=== PATIENT | female | born 1990 | race Caucasian/White ===

== ENCOUNTER 2020-12-29 06:25 | Inpatient (IN) | payer SELFPAY ==
[~2020-12-29] VITALS: Ht 172.7 cm; Wt 74.5 kg
[2020-12-29 07:16] VITALS: BP 112/77
[2020-12-29] MEDS ORDERED: OXYTOCIN 30U/ 0.9% NaCL 500ML 500 ML IV ONE (07:30)
[2020-12-29] MEDS ORDERED: FENTANYL PF 100 MCG/2ML IV PRN (07:30)
[2020-12-29] MEDS ORDERED: D5%-LACTATED RINGERS 1,000 ML IV SCH (07:30)
[2020-12-29] MEDS ORDERED: CALCIUM CARBONATE 500 MG TAB.CHEW PO PRN (07:30)
[2020-12-29] MEDS ORDERED: TERBUTALINE 1 MG/ML, 1ML SQ PRN (07:30)
[2020-12-29] MEDS ORDERED: FENTANYL PF 100 MCG/2ML IVPush PRN (07:30)
[2020-12-29] MEDS ORDERED: TERBUTALINE 1 MG/ML, 1ML IVPush PRN (07:30)
[2020-12-29] MEDS ORDERED: ONDANSETRON 2MG/ML, 2ML IVPush PRN (07:30)
[2020-12-29] MEDS ORDERED: NEWBORN KIT ONE (07:32)
[2020-12-29] MEDS ORDERED: OXYTOCIN 30U/ 0.9% NaCL 500ML 500 ML ONE (07:33)
[2020-12-29] MEDS ORDERED: MISOPROSTOL 200 MCG TABLET ONE (07:33)
[2020-12-29] MEDS ORDERED: LIDOCAINE 1%, 20ML ONE (07:33)
[2020-12-29] MEDS: LACTATED RINGERS 1,000 ML IV SCH ×3 (07:40→12:33)
[2020-12-29 07:49] LABS: BASOPHILS % (AUTO) 1 % (0-1); EOSINOPHILS % (AUTO) 1 % (1-7); LYMPHOCYTES % (AUTO) 12 % (22-44); MEAN CORPUSCULAR HEMOGLOBIN 33.6 pg (27.0-34.8); MEAN CORPUSCULAR HGB CONC 34.4 g/dL (32.4-35.8); MEAN PLATELET VOLUME 9.9 fL (7.4-10.4); MONOCYTES % (AUTO) 6 % (2-9); NEUTROPHILS % (AUTO) 82 % (42-75); PLATELET COUNT 162 x10^3/uL (130-400); RED BLOOD COUNT 3.95 x10^6/uL (3.82-5.3); RED CELL DISTRIBUTION WIDTH 12.2 % (9.6-15.2)
[2020-12-29] MEDS ORDERED: PNV1TAB.5 PO (08:25)
[2020-12-29] MEDS ORDERED: EPHEDRINE 50 MG/ML, 1ML ONE (11:07)
[2020-12-29] MEDS ORDERED: FENTANYL/BUPIV./NS/PF 250 ML EPIDCONT ONE (11:08)
[2020-12-29] MEDS ORDERED: EPHEDRINE 50 MG/ML, 1ML IVPush ONE (12:20)
[2020-12-29] MEDS ORDERED: OXYTOCIN 30U/ 0.9% NaCL 500ML 500 ML IV PRN (12:30)
[2020-12-29 21:00] VITALS: BP 109/68
[2020-12-29] MEDS ORDERED: OXYcodone/APAP 5/325MG TABLET PO PRN (21:30)
[2020-12-29] MEDS ORDERED: SIMETHICONE 80 MG CHEW TAB PO PRN (21:30)
[2020-12-29] MEDS ORDERED: OXYTOCIN 30U/ 0.9% NaCL 500ML 500 ML IV SCH (21:30)
[2020-12-29] MEDS ORDERED: ONDANSETRON 2MG/ML, 2ML IV PRN (21:30)
[2020-12-29] MEDS ORDERED: CARBOPROST TROMETHAMINE 250 MCG/ML, 1ML IM PRN (21:30)
[2020-12-29] MEDS ORDERED: MISOPROSTOL 200 MCG TABLET PR PRN (21:30)
[2020-12-29] MEDS ORDERED: METHYLERGONOVINE 0.2 MG/ML IM PRN (21:30)
[2020-12-29] MEDS: DOCUSATE 100 MG CAPSULE PO PRN (21:40)
[2020-12-29] MEDS: OXYcodone/APAP 5/325MG TABLET PO PRN (21:41)
[2020-12-30] MEDS: IBUPROFEN 600 MG TABLET PO PRN ×3 (00:27→15:43)
[2020-12-30 00:34] VITALS: BP 102/67
[2020-12-30 02:44] LABS: BASOPHILS % (AUTO) 1 % (0-1); EOSINOPHILS % (AUTO) 0 % (1-7); LYMPHOCYTES % (AUTO) 9 % (22-44); MEAN CORPUSCULAR HEMOGLOBIN 33.9 pg (27.0-34.8); MEAN CORPUSCULAR HGB CONC 34.5 g/dL (32.4-35.8); MEAN PLATELET VOLUME 10.1 fL (7.4-10.4); MONOCYTES % (AUTO) 7 % (2-9); NEUTROPHILS % (AUTO) 83 % (42-75); PLATELET COUNT 148 x10^3/uL (130-400); RED BLOOD COUNT 3.36 x10^6/uL (3.82-5.3); RED CELL DISTRIBUTION WIDTH 12.1 % (9.6-15.2)
[2020-12-30] MEDS: OXYcodone/APAP 5/325MG TABLET PO PRN ×3 (03:35→12:30)
[2020-12-30 03:47] VITALS: BP 103/67
[2020-12-30] MEDS: DOCUSATE 100 MG CAPSULE PO PRN (07:49)
[2020-12-30 08:00] VITALS: BP 105/70
[2020-12-30] MEDS ORDERED: PRENATAL VIT/IRON/FA 1 EACH TABLET PO SCH (09:00)
[2020-12-30 12:27] VITALS: BP 99/64
[2020-12-30] MEDS ORDERED: IBUP-1222 PO (19:07)
[2020-12-30] MEDS ORDERED: DOCU-131 PO (19:08)
== END 2020-12-30 20:06 | disposition home or self-care (01) | DRG 807 ==
LOC: LDOP 06:25 → LDIP 07:23 → 2NW 20:17
PROVIDERS: ADMIT Obstetrics & Gynecology; ATTEND Obstetrics & Gynecology
PROC: 10E0XZZ Delivery of Products of Conception, External Approach (ICD-10-PCS; principal; 2020-12-29)
PROC: 0HQ9XZZ Repair Perineum Skin, External Approach (ICD-10-PCS; 2020-12-29)
PROC: 3E0R3BZ Introduction of Anesthetic Agent into Spinal Canal, Percutaneous Approach (ICD-10-PCS; 2020-12-29)
PROC: 00HU33Z Insertion of Infusion Device into Spinal Canal, Percutaneous Approach (ICD-10-PCS; 2020-12-29)
DX: O99.52 Diseases of the respiratory system complicating childbirth (principal); Z37.0 Single live birth; J45.909 Unspecified asthma, uncomplicated; G43.909 Migraine, unspecified, not intractable, without status migrainosus; O99.354 Diseases of the nervous system complicating childbirth; Z20.822 Contact with and (suspected) exposure to COVID-19; Z3A.37 37 weeks gestation of pregnancy; O70.0 First degree perineal laceration during delivery
CPT/HCPCS: 36415; J7121; 84112; 85025; 86592; 86850; 86900; 87635; G0378; J2590; J7120